=== PATIENT | female | born 1940 | race Caucasian/White ===

== ENCOUNTER → 2017-05-01 12:25 | Outpatient (CLI) | payer MEDICARE, SELFPAY ==
--- NOTE | 2017-05-01 12:28 | HPBI_ITS ---
MAMMOGRAPHY - BILATERAL SCREENING REASON FOR EXAM: Female, 76 years old. Routine annual screening examination. PERTINENT HISTORY: Non-contributory. TECHNIQUE: Digital bilateral breast elsi (3D mammographic acquisition) in the CC and MLO projections. 2-D mediolateral oblique (MLO) and craniocaudad (CC) views of both breasts were obtained. CAD: Full Field Digital Mammography with Computer Added Detection was performed. COMPARISON: Comparison is made with prior study dated November 22, 2015 and June 30, 2014. FINDINGS: Breast Composition: There are scattered areas of fibroglandular density. There are no dominant masses or suspicious calcifications. No other significant abnormalities are identified. There has been no significant change since the prior study. HPBI/SCREENING MAMM (CAD), BILAT IMPRESSION: Stable bilateral screening mammogram. Yearly follow-up mammogram recommended. (A) ASSESSMENT CATEGORY: BIRADS Category 1: Negative. A letter regarding these results will be sent to the patient by the facility within 30 days. Approximately 10% of breast cancers are not detected by mammography. A normal mammogram should not delay biopsy of a clinically suspicious abnormality. [id number] Electronically Signed: Turner Del Valle MD at 14:50 EST Tel [phone], Service support ,
== END ==
PROVIDERS: Family Provider Internal Medicine; PCP Internal Medicine; Visit Provider Internal Medicine
DX: Z12.31 Encounter for screening mammogram for malignant neoplasm of breast (principal)
CPT/HCPCS: 77063; 77067

== ENCOUNTER → 2017-07-08 09:58 | Outpatient (CLI) | payer MEDICARE, SELFPAY ==
--- NOTE | 2017-07-08 10:03 | US_ITS ---
STUDY: ABDOMINAL ULTRASOUND - RIGHT UPPER QUADRANT REASON FOR VISIT: Female, 76 years old. Epigastric pain. TECHNIQUE: Ultrasound evaluation of the right upper quadrant was performed with real-time and static rogers-scale imaging. TECHNICAL QUALITY: Adequate. COMPARISON: None. FINDINGS: Liver: The liver measures 13.3 cm. There is increased echogenicity consistent with fatty infiltration. The bile ducts are within normal limits. There is hepatic color flow. The direction of portal flow is hepatopetal. There is no demonstrated mass lesion. Gallbladder: Normal distended gallbladder. The gallbladder wall measures 2.0 mm. There is a negative sonographic Jeffrey's sign. There is no pericholecystic fluid. There are no gallstones. Common Bile Duct (C.B.D.): The common bile duct measures 2.0 mm. Pancreas: There is nonvisualization of the pancreas due to overlying bowel gas. Right Kidney: Normal size of the right kidney. The right kidney measures 10.5 cm x 4.8 x 4.9 cm. Normal renal cortex. The right cortex measures 1.4 cm. There is no demonstrated renal mass or cyst. There is no right hydronephrosis. US/Gallbladder IMPRESSION: Fatty infiltration of the liver. Electronically Signed: Turner Del Valle MD at 15:36 EDT Tel [phone], Service support ,
== END ==
PROVIDERS: Family Provider Internal Medicine; PCP Internal Medicine; Visit Provider Internal Medicine
DX: R10.13 Epigastric pain (principal)
CPT/HCPCS: 76705

== ENCOUNTER → 2017-08-16 09:46 | Outpatient (CLI) | payer MEDICARE, SELFPAY ==
--- NOTE | 2017-08-16 09:49 | RAD_ITS ---
STUDY: X-RAY - LEFT FOOT CLINICAL: Female, 76 years old. Pain TECHNIQUE: 3 view(s) of the foot. COMPARISON: 09/13/2015. FINDINGS: Normal talus and tarsal bones. Stable small plantar calcaneal spur. Normal visualized subtalar, talonavicular, calcaneocuboid, tarsal and tarsometatarsal articulations. Normal metatarsi. There is degenerative arthrosis of the metatarsophalangeal joint of the hallux . Normal tibial and fibular sesamoid bones. Normal interphalangeal joint of the great toe. Normal phalanges of the great toe. Normal second through fifth metatarsophalangeal joints. Normal interphalangeal joints and phalanges of the lesser toes. The soft tissue structures are unremarkable. RAD/Foot min 3 Views IMPRESSION: Stable mild arthrosis. No fracture or dislocation. Electronically Signed: Rah Balderas DO at 7:41 EDT , Service support ,
== END ==
PROVIDERS: Family Provider Internal Medicine; PCP Internal Medicine; Visit Provider Internal Medicine
DX: M79.672 Pain in left foot (principal)
CPT/HCPCS: 73630

== ENCOUNTER → 2018-06-11 10:29 | Outpatient (CLI) | payer MEDICARE, SELFPAY ==
--- NOTE | 2018-06-11 10:33 | BD_ITS ---
STUDY: DUAL ENERGY X-RAY ABSORPTIOMETRY / DXA REASON FOR EXAM: Female, 77 years old. The patient is postmenopausal. Loss of height. TECHNIQUE: Bone Mineral Density (BMD) measurements of lumbar spine and bilateral hips were obtained. COMPARISON: Comparison is made with prior study dated November 22, 2015. FINDINGS: Lumbar Spine (L1-L4): g/cm2 (1.063) / T-score (-0.9) / Z-score (0.9) Findings are suggestive of normal bone density with a low fracture risk. Increased kyphosis. Left Femur Total: g/cm2 (0.996) / T-score (-0.1) / Z-score (1.7) Left Femoral Neck: g/cm2 (1.006) / T-score (-0.2) / Z-score (1.7) Right Femur Total: g/cm2 (1.025) / T-score (0.1) / Z-score (1.9) Right Femoral Neck: g/cm2 (0.991) / T-score (-0.3) / Z-score (1.6) The T-Scores on the most recent prior examination were: Lumbar Spine (L1-L4): There has been worsening of bone density since the previous examination. Left Femur Total: which represents a worsening of 3.6%. Right Femur Total: which represents a worsening of 3.1%. BD/Dexa Bone Density Study IMPRESSION: The patient is considered normal as outlined below according to World Fredrick Organization (WHO) criteria with a low fracture risk. There has been worsening of bone density since the previous examination. Reference Information: The T-score is the number of standard deviations above or below the standard which is normal for young adults at their peak bone mineral density. The World Health Organization (WHO) interprets the T-scores as follows: Above -1 Normal bone density Between -1 and -2.5 Osteopenia Equal to / or below -2.5 Osteoporosis As a practical clinical guideline, osteopenia may be graded as follows: Mild -1 through -1.5 Moderate -1.6 through -2.0 Severe -2.1 through -2.4 The Z-score is the number of standard deviations above or below age-matched controls. A Z-score of less than -1.5 would be considered abnormal. References: 1. NIH Osteoporosis and Related Bone Diseases http://www.osteo.org 2. International Society for Clinical Densitometry http://www.iscd.org 3. National Osteoporosis Foundation http://www.nof.org Electronically Signed: Turner Del Valle, at 15:22 EDT , Service support ,
--- NOTE | 2018-06-11 10:33 | BI_ITS ---
MAMMOGRAPHY - BILATERAL SCREENING REASON FOR EXAM: Female, 77 years old. Routine annual screening examination. PERTINENT HISTORY: Non-contributory. TECHNIQUE: Digital bilateral breast elsi (3D mammographic acquisition) in the CC and MLO projections. 2-D mediolateral oblique (MLO) and craniocaudad (CC) views of both breasts were obtained. CAD: Full Field Digital Mammography with Computer Added Detection was performed. COMPARISON: Comparison is made with prior study dated May 01, 2017 and November 22, 2015. FINDINGS: Breast Composition: There are scattered areas of fibroglandular density. There are no dominant masses or suspicious calcifications. Stable asymmetry of breast tissue with more breast tissue is seen in the retrocrural region of the right breast. No other significant abnormalities are identified. There has been no significant change since the prior study. BI/SCREENING MAMM (CAD), BILAT IMPRESSION: Stable bilateral screening mammogram. Yearly follow-up mammogram recommended. (A) ASSESSMENT CATEGORY: BIRADS Category 2: Benign. A letter regarding these results will be sent to the patient by the facility within 30 days. Approximately 10% of breast cancers are not detected by mammography. A normal mammogram should not delay biopsy of a clinically suspicious abnormality. [id number] Electronically Signed: Turner Del Valle, at 14:23 EDT , Service support ,
== END ==
PROVIDERS: Family Provider Internal Medicine; PCP Internal Medicine; Referring Provider Internal Medicine; Visit Provider Internal Medicine
DX: Z12.31 Encounter for screening mammogram for malignant neoplasm of breast (principal); Z78.0 Asymptomatic menopausal state
CPT/HCPCS: 77063; 77067; 77080

== ENCOUNTER → 2019-06-15 11:40 | Outpatient (CLI) | payer MEDICARE, SELFPAY ==
--- NOTE | 2019-06-15 11:48 | BI_ITS ---
MAMMOGRAPHY - BILATERAL SCREENING REASON FOR EXAM: Female, 78 years old. Routine annual screening examination. PERTINENT HISTORY: Non-contributory. TECHNIQUE: Digital bilateral breast lolly (3D mammographic acquisition) in the CC and MLO projections. 2-D mediolateral oblique (MLO) and craniocaudad (CC) views of both breasts were obtained. CAD: Full Field Digital Mammography with Computer Added Detection was performed. COMPARISON: Comparison is made with prior study dated June 11, 2018 and May 01, 2017. FINDINGS: Breast Composition: There are scattered areas of fibroglandular density. There are no dominant masses or suspicious calcifications. Stable asymmetry of breast tissue were more breast tissue is seen in the retroareolar region of the right breast. No other significant abnormalities are identified. There has been no significant change since the prior study. BI/SCREEN MAMM (CAD) W/LOLLY BILAT IMPRESSION: Stable bilateral screening mammogram. Yearly follow-up mammogram recommended. (A) ASSESSMENT CATEGORY: BIRADS Category 2: Benign. A letter regarding these results will be sent to the patient by the facility within 30 days. Approximately 10% of breast cancers are not detected by mammography. A normal mammogram should not delay biopsy of a clinically suspicious abnormality. [id number] Electronically Signed: Turner Del Valle, at 13:00 EDT , Service support ,
== END ==
PROVIDERS: PCP Internal Medicine; Referring Provider Internal Medicine; Visit Provider Internal Medicine
DX: Z12.31 Encounter for screening mammogram for malignant neoplasm of breast (principal)
CPT/HCPCS: 77063; 77067

== ENCOUNTER → 2019-11-05 14:45 | Outpatient (CLI) | payer MEDICARE, SELFPAY ==
--- NOTE | 2019-11-05 14:51 | CT_ITS ---
STUDY: RIGHT LOWER EXTREMITY/KNEE CT SCAN REASON FOR EXAM: Female, 79 years old. BHARATHI EMELIA, VARUS DEFORMITY RADIATION DOSAGE (If Supplied By Facility): CTDIvol = ( 18.71 ) mGy, DLP = ( 1138.53 ) mGycm. Individualized dose optimization techniques were used for this CT.? TECHNIQUE: Axial multidetector CT scan of the right lower extremity. Coronal and sagittal reformatted images. [facility] protocol. COMPARISON: 09/08/2012. FINDINGS: No acute fracture. No acute dislocation. No acute bone destruction. Mild right hip osteoarthritis. Mild/moderate midfoot joint arthrosis. Advanced right knee medial compartment joint space narrowing with vacuum phenomenon and osteophytes. Right knee lateral compartment joint space preserved with osteophytes. Right knee moderate patellofemoral joint space narrowing with osteophytes. Small joint effusion. Moderate-sized popliteal cyst. Minimal soft tissue swelling. No focal muscle abnormality. CT/Extremity Lower without Contra IMPRESSION: Right knee moderate/severe osteoarthritis predominating at the medial compartment Small knee joint effusion, moderate-sized popliteal cyst and mild swelling Electronically Signed: Akil Carrasco DO at 8:50 EDT Tel , Service support ,
== END ==
PROVIDERS: PCP Internal Medicine; Referring Provider Orthopaedic Surgery; Visit Provider Orthopaedic Surgery
DX: M17.11 Unilateral primary osteoarthritis, right knee (principal); M21.161 Varus deformity, not elsewhere classified, right knee
CPT/HCPCS: 73700

== ENCOUNTER 2019-11-23 12:15 | Observation (INO) | payer MEDICARE, SELFPAY ==
--- NOTE | 2019-11-16 16:11 | EKG12_ITS ---
Test Reason : PRE-OP Blood Pressure : / mmHG Vent. Rate : 066 BPM Atrial Rate : 066 BPM P-R Int : 210 ms QRS Dur : 130 ms QT Int : 444 ms P-R-T Axes : 010 001 029 degrees QTc Int : 465 ms Sinus rhythm with 1st degree A-V block Right bundle branch block Abnormal ECG Confirmed by DAJA UREÑA, CHANEL ([id number]), metropolitan editor MARIE PEREZ ([id number]) on 11/17/2019 9:32:13 AM Referred By: Sebastián Thompson Confirmed By:CHANEL FARNSWORTH MD
[2019-11-16 17:13] LABS: Absolute Lymphocyte Count 1.93 X10^3/uL (0.83-4.51); Absolute Neutrophil Count 3.6 X10^3/uL (2.0-7.7); Eosinophil# 0.15 X10^3/uL; Eosinophils% 2.4 % (0-5); Hematocrit 41.8 % (37-47); Hemoglobin 13.8 g/dL (12.0-15.0); Lymphocyte # 1.93 X10^3/ul (4.0); Mean Corpuscular Hgb 29.7 pg (27.0-32.0); Mean Corpuscular Volume 90.1 fL (81-99); Mean Platelet Vol. 9.9 fl (6.2-12.0); Monocyte# 0.54 X10^3/uL; Monocyte% 8.7 % (0-10); NRBC Flagged by Analyzer 0 % (0-5); Neutrophil % 57.7 % (47-70); Platelet Count 228 K/mm3 (150-450); RBC Distribution Width CV 12.8 % (11.6-14.6); RBC Distribution Width SD 41.9 fl (35.1-43.9); Red Blood Count 4.64 M/mm3 (4.2-5.4); White Blood Count 6.2 K/mm3 (4.4-11.0)
[2019-11-16 17:28] LABS: Anion Gap 7 (5-15); BUN 9 mg/dL (7-18); BUN/Creat Ratio 11.4 RATIO (10-20); Calcium,Total 9.4 mg/dL (8.5-10.1); Chloride 108 mmol/L (98-107); Creatinine, Serum 0.79 mg/dL (0.55-1.02); EST Glomerular Filtration Rate 75 mL/min (>60); Est Glom Filt Rate - Afr Amer 91 mL/min (>60); Glucose 76 mg/dL (74-106); Potassium 3.5 mmol/L (3.5-5.1); Sodium Level 143 mmol/L (136-145)
[2019-11-16 17:37] LABS: Hemoglobin A1c 5.9 % (3.8-5.6)
[2019-11-16 18:18] LABS: Magnesium 2.4 mg/dL (1.6-2.6)
[2019-11-23] VITALS (14 sets, daily range): BP systolic 104–154; BP diastolic 47–93; PULSE 52–75; RESP 16–18; TEMP 35.9–36.4; O2SAT 93–100; BMI 31.8
[2019-11-23 10:31] LABS: Bedside Glucose 128 mg/dL (70-110)
[2019-11-23] MEDS: Gabapentin 600 MG Tablet PO (10:42)
[2019-11-23] MEDS: Acetaminophen 500 MG Tablet 1000 MG PO ×2 (10:42→21:07)
[2019-11-23] MEDS: Lactated Ringers 1,000 ML 100 ML IV (10:43)
--- NOTE | 2019-11-23 12:30 | KNEE_PTH ---
PATIENT: AISHA ULLOA LOC: MS3 U#:[id number] AGE/SX: 79/F ROOM: MS319 RE11/23/[address]: Dr. Sebastián Thompson DO : 1940 BED: 1 DIS: 11/24/2019 SPEC #: [id number] RECD: 11/23/19 15:16 STATUS: EVELIN REQ #: [id number] MURALI: 11/23/19 12:[address]: Sebastián Thompson DEPT: SURGICAL PATHOLOGY RECD BY: Brian Andersen ENTERED: 11/24/19 08:06 SP TYPE: TOTAL KNEE OTHR DR: Dr. Bri Hooker, DO Tissues: Knee, NOS Procedures: Decalcification bone/plaque Surgery Specimen Level IV HEADER OPERATION: ERAS, total knee replacement robotic arm assist PRE-OP DIAGNOSIS: Right knee osteoarthritis TISSUE SUBMITTED: Right knee bone and tissue MICROSCOPIC DIAGNOSIS Bone and soft tissue of right knee, total knee resection: Severe degenerative joint disease. AM:franco 11/27/19 MICROSCOPIC DESCRIPTION Slides are reviewed. GROSS DESCRIPTION Received is one container designated bone and soft tissue right knee. The specimen consists of multiple fragments of vital-yellow bone measuring in aggregate 9 x 7.5 x 4 cm. No soft tissue is identified. A number of bony fragments contain articular surfaces consistent with tibial plateau and femoral condyle and displaying prominent osteophyte formation, eburnation, and bone erosion. Slat Basket Maker Helper Machine sections are submitted in one cassette after decalcification. / SJ:franco 11/24/19 TC:5 CPT: 61290, 52669
[2019-11-23] MEDS: Cefazolin 2 GM in 0.9% Normal Saline 100 ML IV (12:36)
[2019-11-23] MEDS: Lactated Ringers 1,000 ML 999 ML IV (13:30)
--- NOTE | 2019-11-23 14:06 | OP.PCM_ITS ---
Report of Operation Date of Procedure: 11/23/19 Pre-Operative Diagnosis: OA right knee Post-Operative Diagnosis: same Surgery/Procedure Performed:: Robotically assisted TKR right knee lip cutter and scorer: Diomedes Hassan Type of Anesthesia:: General/Regional Anesthesiologist: Akil Chapin - Admit VTE Documentation VTE Present on Admission: No VTE Mechan Device Prophylaxis: SCD's, Thigh High RDORIGUEZ Hose VTE Pharm Prophylaxis ordered?: Yes
--- NOTE | 2019-11-23 14:06 | PCM.OPRPT ---
Report of Operation Date of Procedure: 11/23/19 Pre-Operative Diagnosis: OA right knee Post-Operative Diagnosis: same Surgery/Procedure Performed:: Robotically assisted TKR right knee office system analyst: Diomedes Hassan Type of Anesthesia:: General/Regional Anesthesiologist: Akil Chapin - Admit VTE Documentation VTE Present on Admission: No VTE Mechan Device Prophylaxis: SCD's, Thigh High RODRIGUEZ Hose VTE Pharm Prophylaxis ordered?: Yes
[2019-11-23] MEDS: Lactated Ringers 1,000 ML 125 ML IV (14:30)
--- NOTE | 2019-11-23 14:35 | RAD_ITS ---
STUDY: X-RAY - RIGHT KNEE REASON FOR EXAM: Female, 79 years old. Postop right knee. TECHNIQUE: 2 view(s) of the knee. COMPARISON: CT of the right knee, 11/05/2019. FINDINGS: There is a total knee replacement. The prosthetic components are intact and articulate normally with each other. There is no evidence of loosening from the underlying bone. There is no evidence of osseous fracture or destructive osseous pathology. There is air and swelling in the anterior soft tissues with midline skin clips. RAD/Knee 1 or 2 Views IMPRESSION: Status post right TKA. Electronically Signed: Edilson Guan DO at 18:02 EDT Tel [phone], Service support ,
[2019-11-23] MEDS: Aspirin 81 MG TAB.CHEW PO (16:40)
[2019-11-23 17:28] LABS: Hematocrit 38.6 % (37-47); Hemoglobin 12.3 g/dL (12.0-15.0); Mean Corp Hgb Conc 31.9 g/dL (32-36); Mean Corpuscular Hgb 29.1 pg (27.0-32.0); Mean Corpuscular Volume 91.5 fL (81-99); Mean Platelet Vol. 9.6 fl (6.2-12.0); Platelet Count 198 K/mm3 (150-450); RBC Distribution Width CV 12.9 % (11.6-14.6); RBC Distribution Width SD 42.6 fl (35.1-43.9); Red Blood Count 4.22 M/mm3 (4.2-5.4); White Blood Count 5.7 K/mm3 (4.4-11.0)
[2019-11-23 17:42] LABS: Anion Gap 3 (5-15); BUN 6 mg/dL (7-18); BUN/Creat Ratio 8.6 RATIO (10-20); Calcium,Total 8.8 mg/dL (8.5-10.1); Chloride 112 mmol/L (98-107); EST Glomerular Filtration Rate 86 mL/min (>60); Est Glom Filt Rate - Afr Amer 104 mL/min (>60); Estimated Creatinine Clearance 37.26 ml/min; Glucose 117 mg/dL (74-106); Potassium 3.8 mmol/L (3.5-5.1); Sodium Level 144 mmol/L (136-145)
[2019-11-23] MEDS: oxyCODONE 5 MG Tablet PO ×3 (18:18→23:27)
[2019-11-23] MEDS: Cefazolin 1 GM/50 ML BAG IV (21:02)
[2019-11-23] MEDS: Losartan Potassium 50 MG Tablet PO (21:06)
[2019-11-23] MEDS: Atorvastatin Calcium 80 MG Tablet PO (21:06)
[2019-11-23] MEDS: Tolterodine Tartrate 2 MG CAP.SA PO (21:06)
[2019-11-24] MEDS: Lactated Ringers 1,000 ML 125 ML IV (00:50)
[2019-11-24] MEDS: oxyCODONE 5 MG Tablet PO ×3 (03:50→13:30)
[2019-11-24] MEDS: Cefazolin 1 GM/50 ML BAG IV (03:58)
[2019-11-24 04:02] VITALS: BP 121/58; PULSE 60; RESP 18; TEMP 36.6; O2SAT 95
[2019-11-24 06:16] LABS: Anion Gap 4 (5-15); BUN 9 mg/dL (7-18); BUN/Creat Ratio 12.3 RATIO (10-20); Calcium,Total 8.2 mg/dL (8.5-10.1); Chloride 108 mmol/L (98-107); Creatinine, Serum 0.73 mg/dL (0.55-1.02); EST Glomerular Filtration Rate 82 mL/min (>60); Est Glom Filt Rate - Afr Amer 99 mL/min (>60); Estimated Creatinine Clearance 37.26 ml/min; Glucose 118 mg/dL (74-106); Potassium 3.9 mmol/L (3.5-5.1); Sodium Level 140 mmol/L (136-145)
[2019-11-24 06:41] LABS: Scan Indicated on CBC? Y/N YES- FLAGS NOTED
[2019-11-24] MEDS: Acetaminophen 500 MG Tablet 1000 MG PO ×2 (06:42→13:30)
[2019-11-24 06:45] LABS: POSITIVE DIFFERENTIAL YES
[2019-11-24 07:33] VITALS: BP 100/51; PULSE 65; RESP 16; TEMP 36.6; O2SAT 94
--- NOTE | 2019-11-24 07:38 | PCM.PN.ORT ---
Subjective: Pt doing well. No complaints. - Physical Exam Vitals/I&O's: Vital Signs Temp Pulse Resp BP Pulse Ox 98 F 65 16 100/51 L 94 11/24/19 07:33 11/24/19 07:33 11/24/19 07:33 11/24/19 07:33 11/24/19 07:33 Oxygen Flow Rate (L/min) 6 Oxygen Delivery Method Room Air Weight: 174 lb 2.643 oz Body Mass Index (BMI) 31.8 Intake and Output for Last 24 Hours 11/22/19 11/23/19 11/24/19 23:59 23:59 23:59 Intake Total 4844.50 / 4844.50 941.67 / 941.67 Output Total 200 / 200 Balance 4644.50 / 4644.50 941.67 / 941.67 General: Alert, Oriented x3, Cooperative, No apparent distress Extremities: No clubbing, No cyanosis, No edema, Capillary Refill Less than 3 Seconds, No Calf Tenderness Skin: Incision - intact Neurological: Neuro grossly intact Laboratory Results 11/23/19 10:26: POC Glucose 128 H 11/23/19 17:10: WBC 5.7, RBC 4.22, Hgb 12.3, Hct 38.6, MCV 91.5, MCH 29.1, MCHC 31.9 L, RDW Std Deviation 42.6, RDW Coeff of Juan C 12.9, Plt Count 198, MPV 9.6 11/23/19 17:10: Sodium 144, Potassium 3.8, Chloride 112 H, Carbon Dioxide 29.0, Anion Gap 3 L, BUN 6 L, Creatinine 0.70, Estim Creat Clear Calc 37.26, Est GFR (MDRD) Af Amer 104, Est GFR (MDRD) Non-Af 86, BUN/Creatinine Ratio 8.6 L, Glucose 117 H, Calcium 8.8 11/24/19 05:25: WBC Pending, RBC Pending, Hgb Pending, Hct Pending, MCV Pending, MCH Pending, MCHC Pending, RDW Std Deviation Pending, RDW Coeff of Juan C Pending, Plt Count Pending 11/24/19 05:25: Sodium 140, Potassium 3.9, Chloride 108 H, Carbon Dioxide 28.0, Anion Gap 4 L, BUN 9, Creatinine 0.73, Estim Creat Clear Calc 37.26, Est GFR (MDRD) Af Amer 99, Est GFR (MDRD) Non-Af 82, BUN/Creatinine Ratio 12.3, Glucose 118 H, Calcium 8.2 L Current Medications Acetaminophen (Tylenol) 1,000 mg PO Q8 [facility] Last Admin: 11/24/19 06:42 Dose: 1,000 mg Documented by: [facility], [facility]) [facility] Admin: 11/23/19 16:40 Dose: 81 mg Documented by: Atorvastatin Calcium (Lipitor) 80 mg PO QHS [facility] Last Admin: 11/23/19 21:06 Dose: 80 mg Documented by: Bupropion HCl (Wellbutrin Xl) 300 mg PO DAILY [facility] Cholecalciferol (Vitamin D (25mcg)) 5,000 unit PO DAILY [facility] Cyanocobalamin (Vitamin B12) 500 mcg PO DAILY [facility] Lactated Ringer's () 1,000 mls @ 125 mls/hr IV .Q8H [facility] Last Infusion: 11/24/19 04:30 Dose: 125 mls/hr Documented by: Sodium Chloride () 250 mls @ 15 mls/hr IV .[id number] PRN PRN Reason: Additional IVPB Infusion Losartan Potassium (Cozaar) 50 mg PO BID [facility] Last Admin: 11/23/19 21:06 Dose: 50 mg Documented by: Metformin [facility] (Glucophage) [facility] Metoprolol Succinate (Toprol Xl (Beta Columba)) 25 mg PO BID [facility] Last Admin: 11/23/19 21:07 Dose: Not Given Documented by: Ondansetron HCl (Zofran) 4 mg IV Q8H PRN PRN PRN Reason: NAUSEA Oxycodone HCl (Oxyir) 5 - 10 mg PO Q4H PRN PRN PRN Reason: Pain Score 4-10/10 Last Admin: 11/24/19 03:50 Dose: 10 mg Documented by: Pantoprazole Sodium (Protonix) 20 mg PO DAILY [facility] Promethazine HCl (Phenergan) 12.5 mg IM Q6H PRN PRN; Protocol PRN Reason: NAUSEA/VOMITING Senna/Docusate Sodium (Senokot-S, Milagro-Colace) 2 tablet PO BID [facility] Last Admin: 11/23/19 21:06 Dose: Not Given Documented by: Sodium Chloride () 10 - 40 ml IV UD PRN PRN Reason: SALINE FLUSH Tolterodine Tartrate (Detrol La) 2 mg PO QHS [facility] Last Admin: 11/23/19 21:06 Dose: 2 mg Documented by: Medical Necessity - Tobacco Use Smoking Status: Former smoker Assessment/Plan s/p R TKR D/c home with Rx as ordered and PT
--- NOTE | 2019-11-24 07:41 | DCINST_ITS ---
Discharge Diet: No Restrictions Discharge Activity: May Not Drive May shower in (days): 2 - Avoid water directly on incision May resume sexual activity in: No Restrictions Ice area for (Minutes): 30 - 3x/day Weight Bearing Status: Weight bearing as tolerated Call your doctor if your incision/area has: Continuous Slow Oozing, Sudden Increased Bleeding, Increased Pain/ Swelling, Increased Redness, Foul Smelling Discharge Call your doctor if you observe: Fever of 101 or Higher, Coldness, Increased Pain, Numbness or Tingling, Change in Color, Inability to urinate, Inability to have a bowel movement, Shortness of breath, Dizziness, Chest pain Allergies/Adverse Reactions: Allergies propranolol [From Inderal LA] Allergy (Verified 11/23/19 10:15) PT UNSURE OF REACTION sore mouth BETH Inhibitors Adverse Reaction (Verified 11/23/19 10:15) PT UNSURE OF REACTION cough Medications to take at Discharge Acetaminophen [Tylenol Arthritis] 650 mg PO PRN PRN 11/09/19 Aspirin [Aspirin EC] 81 mg PO DAILY 11/09/19 Biotin 5 mg PO DAILY 11/09/19 Bupropion HCl [Bupropion Xl] 300 mg PO DAILY 11/09/19 Cholecalciferol (Vitamin D3) [Vitamin D3] 125 mcg PO DAILY 11/09/19 Cyanocobalamin (Vitamin B-12) [Vitamin B-12] 500 mcg SL DAILY 11/09/19 Esomeprazole Mag Trihydrate [Nexium] 20 mg PO DAILY 11/09/19 Ibuprofen 200 mg PO PRN PRN 11/09/19 Losartan Potassium [Cozaar] 50 mg PO BID 11/09/19 Metformin HCl 500 mg PO DAILY 11/09/19 Metoprolol Succinate 25 mg PO BID 11/09/19 Naproxen Sodium [Aleve] 220 mg PO PRN PRN 11/09/19 Oxybutynin Chloride [Ditropan Xl] 10 mg PO QHS 11/09/19 Rosuvastatin Calcium [Crestor] 40 mg PO QHS 11/09/19 Acetaminophen [Tylenol] 1,000 mg PO Q8 tab 11/24/19 Aspirin [Aspirin, Baby] 81 mg PO BIDCM tab.chew 11/24/19 Oxycodone [Oxyir] 5 - 10 mg PO Q4H PRN PRN #60 tab 11/24/19 The following prescriptions were given: Oxycodone [Oxyir] 5 - 10 mg PO Q4H PRN PRN #60 tab PRN Reason: Pain Score 4-10/10 Prescription Printed Primary Care Physician: Bri Hooker DO [Primary Care Provider] - Test Results: Test results from this visit will be discussed in further detail at your follow- up appointment, if applicable.
[2019-11-24 08:31] LABS: Hemoglobin 10.6 g/dL (12.0-15.0); Mean Corp Hgb Conc 32.1 g/dL (32-36); Mean Corpuscular Hgb 29.7 pg (27.0-32.0); Mean Corpuscular Volume 92.4 fL (81-99); Mean Platelet Vol. 10.2 fl (6.2-12.0); Platelet Count 168 K/mm3 (150-450); RBC Distribution Width CV 12.9 % (11.6-14.6); RBC Distribution Width SD 43.8 fl (35.1-43.9); Red Blood Count 3.57 M/mm3 (4.2-5.4); White Blood Count 8.1 K/mm3 (4.4-11.0)
[2019-11-24] MEDS: Aspirin 81 MG TAB.CHEW PO (08:38)
[2019-11-24 08:39] VITALS: PULSE 65
[2019-11-24] MEDS: Metoprolol(XL)Succ 25 MG Tablet PO (08:39)
[2019-11-24] MEDS: Senna/Docusate Sodium 1 Tablet 2 TABLET PO (08:39)
[2019-11-24] MEDS: Pantoprazole Sodium 20 MG Tablet PO (08:39)
[2019-11-24] MEDS: Cyanocobalamin 500 MCG Tablet PO (08:40)
[2019-11-24] MEDS: buPROPion (XL) 300 MG TABLET.XL PO (08:40)
[2019-11-24] MEDS: metFORMIN HCl 500 MG Tablet PO (08:42)
--- NOTE | 2019-11-24 11:30 | CASEMGMT ---
GREGORIO JOHNSON Face to Face with patient for initial transition planning/care coordination assessment. RN CM introduced self and role at [facility]. Patient sitting in chair, alert and oriented, son at bedside. Patient willing to participate in assessment and is able to answer all questions appropriately. Care providers, pharmacy, and demographics verified. Patient wishes to discharge home, and is setup with [facility] for outpatient therapy. Patient states she has no further needs or concerns at this time. CM to follow for discharge planning needs that may arise. PCP: [facility] Specialists: Jay Preferred Pharmacy: [facility] Insurance: [employer] [facility] Prescription Benefit: yes Living Will/HPOA: yes, son Darryl Rangel LNOK: son Living Arrangements: Patient lives in a single story home with son. 3 steps and railing to enter the home. Patient independent at home prior to surgery Transportation: self, family DME/HHC: Patient states she has raised toilet and walker at home. Patient states she has outpatient therapy scheduled with [facility] for Disposition Plan: Patient to discharge home with outpatient therapy, family support, and follow-up plans in place. Rosalia ALVAREZ, RN, CM
--- NOTE | 2019-11-24 12:03 | PHA.DC.MC ---
Pharmacy Service has performed discharge medication reconciliation and counseling for this patient. 1. OXYCODONE 5-10MG PO Q4H PRN PAIN 4-10 The patient's discharge medication list was reviewed for discrepancies and discrepancies were resolved. Patient instructed to take aspirin BID for now until instructed by physician to resume once daily. Advised patient to try to avoid ibuprofen and naproxen while on aspirin BID. Home Medications Acetaminophen [Tylenol Arthritis] 650 mg PO PRN PRN 11/09/19 Aspirin [Aspirin EC] 81 mg PO DAILY 11/09/19 Biotin 5 mg PO DAILY 11/09/19 Bupropion HCl [Bupropion Xl] 300 mg PO DAILY 11/09/19 Cholecalciferol (Vitamin D3) [Vitamin D3] 125 mcg PO DAILY 11/09/19 Cyanocobalamin (Vitamin B-12) [Vitamin B-12] 500 mcg SL DAILY 11/09/19 Esomeprazole Mag Trihydrate [Nexium] 20 mg PO DAILY 11/09/19 Ibuprofen 200 mg PO PRN PRN 11/09/19 Losartan Potassium [Cozaar] 50 mg PO BID 11/09/19 Metformin HCl 500 mg PO DAILY 11/09/19 Metoprolol Succinate 25 mg PO BID 11/09/19 Naproxen Sodium [Aleve] 220 mg PO PRN PRN 11/09/19 Oxybutynin Chloride [Ditropan Xl] 10 mg PO QHS 11/09/19 Rosuvastatin Calcium [Crestor] 40 mg PO QHS 11/09/19 Acetaminophen [Tylenol] 1,000 mg PO Q8 tab 11/24/19 Aspirin [Aspirin, Baby] 81 mg PO BIDCM tab.chew 11/24/19 Oxycodone [Oxyir] 5 - 10 mg PO Q4H PRN PRN #60 tab 11/24/19 The patient was counseled on the following discharge medications and changes in medications for homegoing were reviewed. The Reason for Use, instructions for use, and potential side effects were reviewed for all new medications. The patient's questions regarding all of their medications were answered. The patient was able to verbally demonstrate an understanding of their discharge medications. Patient counseled by graphic designer, Max
== END 2019-11-24 15:54 | disposition home or self-care (01) ==
LOC: SDC 12:22 → MS3 11-24 05:52
PROVIDERS: Anesthesiology; Admitting Provider Orthopaedic Surgery; PCP Internal Medicine; Referring Provider Orthopaedic Surgery; Visit Provider Orthopaedic Surgery
PROC: 0SRC0JZ Replacement of Right Knee Joint with Synthetic Substitute, Open Approach (ICD-10-PCS; CPT 27447; principal; 2019-11-23 12:00)
DX: M17.11 Unilateral primary osteoarthritis, right knee (principal); M21.161 Varus deformity, not elsewhere classified, right knee; Z11.59 Encounter for screening for other viral diseases; I45.10 Unspecified right bundle-branch block; I44.0 Atrioventricular block, first degree; I10 Essential (primary) hypertension; E78.00 Pure hypercholesterolemia, unspecified; M79.7 Fibromyalgia; I48.91 Unspecified atrial fibrillation; K21.9 Gastro-esophageal reflux disease without esophagitis; E11.9 Type 2 diabetes mellitus without complications; Z87.891 Personal history of nicotine dependence; Z79.899 Other long term (current) drug therapy; Z79.82 Long term (current) use of aspirin
CPT/HCPCS: 01400; 27447; 64447; S2900; 36415; 73560; 80048; 82962; 83036; 83735; 85025; 85027; 87081; 87635; 88305; 88311; 93005; 94799; 96361; 96365; 96366; 97110; 97116; 97162; 97166; 97530; 99218; 99251; C1776; J7120; G0378; G0379; G0463; U0003

== ENCOUNTER → 2021-01-05 15:14 | Outpatient (CLI) | payer MEDICARE, SELFPAY ==
[2019-11-23 16:03] VITALS: BMI 31.8
--- NOTE | 2021-01-05 15:17 | BI_ITS ---
MAMMOGRAPHY - BILATERAL SCREENING 3-D TOMOSYNTHESIS REASON FOR EXAM: Female, 80 years old. SCREENING PERTINENT HISTORY: No significant family history. TECHNIQUE: 2-D mammograms and 3-D Tomosynthesis of the breast (s) were performed. CAD was performed. COMPARISON: 06/15/2019 FINDINGS: The breast composition is composed of scattered fibroglandular density. Scattered benign calcifications are seen. No dense spiculated masses or suspicious microcalcifications are identified. No architectural distortion is identified. There is no skin thickening or retraction. There has been no significant change since the prior study. BI/SCRN MAMM (CAD)W/LOLLY BILAT IMPRESSION: No mammographic signs of malignancy. Routine yearly mammograms recommended. ASSESSMENT CATEGORY: BIRADS Category 1: Negative. A letter regarding these results will be sent to the patient by the facility within 30 days. FOLLOW UP RECOMMENDATION: Yearly follow up mammogram recommended. (A) Approximately 10% of breast cancers are not detected by mammography. A normal mammogram should not delay biopsy of a clinically suspicious abnormality. Electronically Signed: Alber Izaguirre MD at 18:14 EDT Tel , Service support ,
--- NOTE | 2021-01-05 15:25 | BD_ITS ---
STUDY: DUAL ENERGY X-RAY ABSORPTIOMETRY / DXA REASON FOR EXAM: Female, 80 years old. 627.8Menopausal postmenopausalBONE DENSITY REASON FOR EXAM TECHNIQUE: Bone Mineral Density (BMD) measurements of lumbar spine and bilateral hips were obtained. COMPARISON: Comparison is made with prior examination dated 06/11/2018. FINDINGS: Lumbar Spine (L1-L4): g/cm2 (1.045) / T-score (0.0) / Z-score (2.6) Findings are suggestive of normal bone density with a low fracture risk. Left Femur Total: g/cm2 (0.907) / T-score (-0.3) / Z-score (1.7) Left Femoral Neck: g/cm2 (0.797) / T-score (-0.5) / Z-score (1.8) Right Femur Total: g/cm2 (0.895) / T-score (-0.4) / Z-score (1.6) Right Femoral Neck: g/cm2 (0.817) / T-score (-0.3) / Z-score (1.9) The T-Scores on the most recent prior examination were: Lumbar Spine (L1-L4): There has been improvement of bone density since the previous examination. Left Femur Total: which represents a worsening of 2.5%. Right Femur Total: which represents a worsening of 6.6%. BD/Dexa Bone Density Study IMPRESSION: The patient is considered normal as outlined below according to World [employer] (WHO) criteria with a low fracture risk. There has been worsening of bone density since the previous examination. Reference Information: The T-score is the number of standard deviations above or below the standard which is normal for young adults at their peak bone mineral density. The World Health Organization (WHO) interprets the T-scores as follows: Above -1 Normal bone density Between -1 and -2.5 Osteopenia Equal to / or below -2.5 Osteoporosis As a practical clinical guideline, osteopenia may be graded as follows: Mild -1 through -1.5 Moderate -1.6 through -2.0 Severe -2.1 through -2.4 The Z-score is the number of standard deviations above or below age-matched controls. A Z-score of less than -1.5 would be considered abnormal. References: 1. NIH Osteoporosis and Related Bone Diseases www osteo.org 2. International Society for Clinical Densitometry www iscd.org 3. National Osteoporosis Foundation www nof.org Electronically Signed: Turner Del Valle MD at 15:38 EDT , Service support ,
== END ==
PROVIDERS: PCP Internal Medicine; Referring Provider Internal Medicine; Visit Provider Internal Medicine
DX: Z12.31 Encounter for screening mammogram for malignant neoplasm of breast (principal); Z78.0 Asymptomatic menopausal state
CPT/HCPCS: 77063; 77067; 77080